=== PATIENT | male | born 1960 | race Caucasian/White ===

== ENCOUNTER 2018-05-10 01:19 | Emergency (ER) | payer BC ==
[~2018-05-10] VITALS: Ht 188 cm; Wt 112.5 kg
== END 2018-05-10 02:58 | disposition home or self-care (01) ==
LOC: ER 01:19
DX: M25.571 Pain in right ankle and joints of right foot (principal); Z88.0 Allergy status to penicillin
CPT/HCPCS: 73610; 73630; 99283